=== PATIENT | female | born 1985 | race African-American/Black ===

== ENCOUNTER 2018-02-18 22:28 | Emergency (ER) | payer OTHER, MEDICAID ==
[~2018-02-18] VITALS: Ht 172.7 cm; Wt 71.7 kg
--- NOTE | 2018-02-18 22:55 | NUR ---
DR LETTY MENODZA MD AT BEDSIDE FOR MSE.
--- NOTE | 2018-02-18 23:09 | NUR ---
RADIOLOGY AT BEDSIDE FOR XRAY.
[2018-02-18 23:36] LABS: *URINE HCG, QUAL NEGATIVE (NEGATIVE)
--- NOTE | 2018-02-18 23:55 | NUR ---
Patient discharged to home in stable conditon. Written and verbal after care instructions given. Patient verbalizes understanding of instructions. Pt denies CP, SOB, N/V, dizziness, ALVAREZ. No distress noted. Pt took all personal belongings.
[2018-02-18 23:57] VITALS: BP 118/68
== END 2018-02-18 23:57 | disposition home or self-care (01) ==
LOC: ER 22:29
DX: R07.89 Other chest pain (principal); Z88.2 Allergy status to sulfonamides
CPT/HCPCS: 71045; 84703; 93005; A4663